=== PATIENT | female | born 1990 | race Caucasian/White ===

== ENCOUNTER 2016-05-27 11:03 | Emergency (ER) | END 2016-05-27 13:55 | disposition home or self-care (01) | DX: S69.91XA Unspecified injury of right wrist, hand and finger(s), initial encounter (principal); W22.8XXA Striking against or struck by other objects, initial encounter; Y92.9 Unspecified place or not applicable | CPT/HCPCS: 29125; 73090; 73110; Z7610 ==

== ENCOUNTER 2016-08-14 22:02 | Emergency (ER) | payer OTHER ==
[~2016-08-14] VITALS: Ht 160 cm; Wt 67.0 kg
[~2016-08-14 22:02] MED LIST: BEN25 GTB; IBUP-727; NAPR-260 PO; URSO300C21 GTB
[2016-08-14 22:24] VITALS: Ht 160 cm; Wt 67.0 kg
[2016-08-15] MEDS ORDERED: HYDROCODONE/APAP (5/325) TAB PO ONE (01:30)
[2016-08-15] MEDS ORDERED: TRAM50TA2 PO (01:51)
[2016-08-15] MEDS ORDERED: NAPR-260 PO (01:51)
[2016-08-15] MEDS ORDERED: ACET500C5 PO (01:51)
--- NOTE | 2016-08-15 01:55 | ERD ---
ER Documentation Chief Complaint Date/Time DATE: 08/15/16 TIME: 01:53 Chief Complaint headache and knee pain x 3 days HPI 24-year-old female presents to the emergency department today complaining of bilateral knee pain for the past 4 days. Patient states she has not taken any medication for the pain. Denies any fevers or chills. Denies any trauma. ROS All systems reviewed and are negative except as per history of present illness. Medications Home Meds Active Scripts Acetaminophen* (Tylophen*) 500 Mg Capsule, 1 CAP PO Q6H Y for PAIN AND OR ELEVATED TEMP, #30 CAP Prov:CORA FELIZ PA-C 08/15/16 Naproxen* (Naprosyn*) 500 Mg Tablet, 500 MG PO BID Y for PAIN AND/OR INFLAMMATION, #30 TAB Prov:CORA FELIZ PA-C 08/15/16 Tramadol HCl (Tramadol HCl) 50 Mg Tablet, 50 MG PO Q4 Y for PAIN, #20 TAB Prov:CORA FELIZ PA-C 08/15/16 Naproxen* (Naprosyn*) 500 Mg Tablet, 500 MG PO BID Y for PAIN AND/OR INFLAMMATION, #30 TAB Prov:JACOB PRIETO PA-C 05/27/16 Reported Medications Ursodiol* (Actigall*) 300 Mg Cap, 300 MG GTB TID 01/17/13 Diphenhydramine Hcl* (Benadryl*) 25 Mg Cap, 25 MG GTB HS Y 01/17/13 Ibuprofen (Motrin) 600 Mg Tablet 06/15/09 Allergies Allergies: Coded Allergies: No Known Drug Allergy (Verified Allergy, Mild, 07/11/15) PMhx/Soc Medical and Surgical Hx: pt denies Medical Hx History of Surgery: Yes (, Gall Bladder) Anesthesia Reaction: No Hx Neurological Disorder: No Hx Respiratory Disorders: No Hx Cardiac Disorders: No Hx Psychiatric Problems: No Hx Miscellaneous Medical Probl: No Hx Alcohol Use: Yes (Occ) Hx Substance Use: No Hx Tobacco Use: No Smoking Status: Unknown if ever smoked Physical Exam Vitals Vital Signs Date Time Temp Pulse Resp B/P Pulse Ox O2 Delivery O2 Flow Rate FiO2 08/14/16 22:24 98.9 78 17 116/63 99 Physical Exam Const: No acute distress Head: Atraumatic Eyes: Normal Conjunctiva ENT: Normal External Ears, Nose and Mouth. Neck: Full range of motion..~ No meningismus. Resp: Clear to auscultation bilaterally Cardio: Regular rate and rhythm, no murmurs Skin: No petechiae or rashes MSK: Bilateral knees with no obvious deformity. No effusion. No erythema or warmth. Full active range of motion at knee. Diffusely tender to palpation over anterior aspect of patella. Crepitus over patella with knee flexion. Pulses 2+. Distal neurovascularly intact. Neur: Awake and alert Psych: Normal Mood and Affect Results 24 hrs Current Medications Medications (Trade) Dose Ordered Sig/Estela Route PRN Reason Start Time Stop Time Status Last Admin Dose Admin Acetaminophen/ Hydrocodone Bitart ([place] (5/325)) 1 tab ONCE ONCE PO 08/15/16 01:30 08/15/16 01:31 DC 08/15/16 01:31 Procedures/MDM This a 25-year-old female presents to the emergency department today complaining of bilateral knee pain for the past 4 days. Patient physical exam is benign. There has been no trauma. Do not feel she requires imaging at this time. Low suspicion for acute fracture dislocation. Patient did have some crepitus with knee flexion her symptoms at this time appear more musculoskeletal and patellofemoral syndrome. Patient is afebrile and otherwise well-appearing. There is no erythema or warmth. Low suspicion for septic joint or gout. I explained this to the patient. Patient summary report to that she had a headache however when I questioned patient about she said she was more concerned about her knee pain. Patient was given [place] here in the emergency department. She was given a prescription for tramadol, Naprosyn and Tylenol for home. She was instructed to follow-up with her primary care physician for referral to physical therapy as I feel that she would benefit from that at this time. At this time the patient is stable for discharge and outpatient management. Patient should follow up with their PCP in the next 1-2 days. They may return to the emergency department sooner for any persistent or worsening of symptoms. Patient understood and agreed with the plan. Departure Diagnosis: Primary Impression: Knee pain Laterality: bilateral Chronicity: unspecified Qualified Code: M25.561 - Pain in both knees, unspecified chronicity Condition: Fair Patient Instructions: Common Kneecap (Patella) Problems, Knee Pain, Uncertain Cause Additional Instructions: Call your primary care doctor TOMORROW for an appointment during the next 1-2 days.See the doctor sooner or return here if your condition worsens before your appointment time. Take tramadol for severe pain otherwise take Naprosyn or Tylenol or Motrin Apply ice and heat intermittently Ask for referral for physical therapy from the primary care doctor CORA FELIZ PA-C Aug 15, 2016 01:54
[2016-08-15 02:01] VITALS: BP 120/80; PULSE 78; RESP 18; TEMP 98.9
== END 2016-08-15 02:02 | disposition home or self-care (01) ==
LOC: FTE 22:02
DX: M25.561 Pain in right knee (principal)
CPT/HCPCS: Z7502; Z7610; 99283